=== PATIENT | male | born 1950 | race African-American/Black ===

== ENCOUNTER 2019-09-01 15:10 | Inpatient (IN) | payer MEDICARE, MEDICAID ==
[~2019-09-01] VITALS: Ht 170.2 cm; Wt 103.9 kg
[~2019-09-01 15:10] MED LIST: AMIODARONE HCL400 M1 ORAL; AMLODIPINE BESYL5 MG ORAL; ASPIRIN81 MG ORAL; CLOTRIMAZOLE10 MG PO; DIGOXIN125 MCG ORAL; DOC-Q-LACE100 M1 ORAL; FUROSEMIDE40 MG ORAL; LISINOPRIL10 MG ORAL; LISINOPRIL30 MG ORAL; METFORMIN HCL850 M1 ORAL; MYFORTIC180 MG PO; OYSTER SHELL C500 MG PO; PANTOPRAZOLE SO40 MG ORAL; PREDNISONE10 MG ORAL; PREDNISONE2.5 MG ORAL; SPIRONOLACTONE25 MG ORAL; STARLIX60 MG ORAL; SULFAMETHOXAZO1 EAC2 ORAL; TACROLIMUS1 MG PO; VALGANCICLOVIR450 MG PO; VITAMIN C500 M1 ORAL; VITAMIN E200 UNI2 PO
--- NOTE | 2019-09-01 15:40 | Emergency Room Report ---
History of Present Illness General Chief Complaint: General Complaint Source: Patient Present Illness HPI History of present illness: 69-year-old -[place] male with past medical history of orthotopic heart transplant (@ [facility] in 2016) on [place], HTN, DM BIB c/o feeling like his "head was hot". Questionable presyncope. Pt states he was watching TV prior to feeling symptomatic. He called his induction machine operator at [facility] but since he's on vacation until Thursday his urged him to come to ED for evaluation. Patient denies fever, PORTILLO, neck pain, rash, vision changes, weakness, CP, SOB, cough, n/v/d, swollen legs, PORTILLO, back pain, or recent medication changes. Denies recent travel or sick contacts. The patient's symptoms were gradual onset, severity was moderate, duration since 1 days. Past medical history: HTN, DM, heart transplant Past surgical history: heart transplant 2016 Smoking: Denies Alcohol use: Denies Drug use: Denies Review of systems: CONST: No fevers or chills, No night sweats PULMONARY: No productive cough, No shortness of breath CARDIAC: No chest pain, No palpitations GI: No vomiting, No diarrhea , No melena_or_BRBPR : No dysuria, No hematuria, No discharge NEURO: No new_focal_weakness_or_numbness, No confusion, No vision changes 14 point Review of Systems is otherwise negative except per HPI Physical Exam: GENERAL: Awake_alert_ nontoxic, no acute distress Spo2 98% on RA, normal EYES: Extraocular muscles are intact. Conjunctivae clear. Lids without swelling ENT: External nose and ear normal_in_appearance. Oropharynx clear. Head_ atraumatic, Moist_oral_mucosa NECK: No JVD. No meningismus. No thyromegaly. Supple. Trachea midline RESP: Normal respiratory effort. Symmetric rise. No stridor. Clear_to_ auscultation_No_rales_No_wheezes CARDIAC: Regular rate and regular rhythm on_auscultation No_significant pedal edema. ABDOMEN: Soft. Nondistended. Nontender_No_rebound_or_guarding. MSK: Normal muscle tone, without rigidity. Extremities without asymmetric deformity or swelling. SKIN: Warm and dry. No visible cyanosis or pallor NEUROLOGIC: Alert, oriented x3. Motor_and_sensation_grossly_intact. No truncal ataxia. Gait_normal Psych: Normal mood and affect, normal judgment and insight - COORDINATION OF CARE Case was discussed with: Patient Any labs and imaging that were ordered were interpreted as part of the medical decision making: Medical Decision Making/Plan: Differential diagnosis for the patients symptoms include malignant arrhythmias , obstructive heart disease (critical aortic stenosis, hypertrophic cardiomyopathy), acute anemia, severe dehydration, electrolyte abnormalities, among others. Patient's exam shows no acute abnormalities. EKG shows NSR with new twi of anteroseptal and lateral leads (V1-V5) Otherwise, no signs of malignant arrhythmia such as Brugada syndrome, delta wave, epsilon wave, significant heart block, or QTc >500. Review of previous EKG from admission in 2016 shows that these are new. CXR shows no acute changes from previously. Troponin is negative x 1. BNP unremarkable. Labs show no severe electrolyte derangement such as severe hyponatremia, hypokalemia, acidosis, or hypoglycemia. The patient denies any external blood loss and has no significant pallor or evidence of acute anemia as a cause of their symptoms. Hemoglobin is not severely low, and acute blood transfusion is not indicated. In addition, the patient has no loud murmur or evidence of significant obstructive heart disease, symptoms are not in the setting of exertion. The patient is neurologically intact, with normal cerebellar exam, without any evidence of central vertigo as a cause of their symptoms. They appear well hydrated without any evidence of severe dehydration or acute hypovolemia. However, given the patients risk factors, the patient would benefit from admission to observation for continuous cardiac monitoring, given the possibility of cardiac pre-syncope. I spoke with Dr. Velásquez, and reviewed the patients presentation, workup, results, and treatment. They will admit the patient for further care and evaluation, and assume care of the patient at this time. 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 Nursing Documentation-PMH Hx Cardiac Problems: Yes - hx of pacemaker [id number] Hx Hypertension: Yes Hx Pacemaker: Yes Hx COPD: Yes Hx Diabetes: Yes Hx Cancer: No Hx Gastrointestinal Problems: No Hx Neurological Problems: No Physical Exam Vital Signs Date Time Temp Pulse Resp B/P (MAP) Pulse Ox O2 Delivery O2 Flow Rate FiO2 09/01/19 15:17 99.1 87 19 154/92 (112) 98 Room Air Sp02 EP Interpretation: reviewed, normal Medical Decision Making Diagnostic Impression: Primary Impression: Pre-syncope Additional Impressions: Abnormal EKG CHF (congestive heart failure) Hx of heart transplant HTN (hypertension) EKG Diagnostic Results PA Scribe Text 12-lead EKG (interpreted by me) Time: 1606 Indication: Rhythm analysis Tracing visualized and Interpreted by me. Rhythm: Normal sinus rhythm [Normal sinus rhythm] Rate: 81 bpm QTc: 446 Morphology: No_significant_ST_elevations_or_depressions, No STEMI Impression: Normal sinus rhythm. T wave abnormality in V1 through V5. No acute STEMI. Normal intervals. Rhythm Strip Diag. Results Rhythm Strip Time: 15:40 EP Interpretation: yes Rate: 87 Rhythm: NSR Other Impression NSR Chest X-Ray Diagnostic Results Chest X-Ray Diagnostic Results : PA Scribe Text Chest X-ray: Views: 1 view(s) Indication: Presyncope Findings: Previous midline sternotomy. Mediastinum normal. No infiltrate. Impression: Previous midline sternotomy. Borderline cardiomegaly. Vascular congestion. The X-ray(s) were independently viewed and interpreted contemporaneously - Electronically signed by Josie arias DO Reevaluation Time: 16:28 Last Vital Signs Date Time Temp Pulse Resp B/P (MAP) Pulse Ox O2 Delivery O2 Flow Rate FiO2 09/01/19 15:17 99.1 87 19 154/92 (112) 98 Room Air Status: improved Disposition: ADMITTED INPATIENT Admit Decision Time: 16:28 Condition: Stable Josie Holt D.O. Sep 01, 2019 15:40
[2019-09-01 15:45] VITALS: BP 148/84
[2019-09-01 16:30] LABS: BASOPHILS % (AUTO) 1.2 % (0.0-2.0); EOSINOPHILS % (AUTO) 4.7 % (0.0-3.0); HEMATOCRIT 40.5 % (42.0-52.0); HEMOGLOBIN 13.3 G/DL (14.2-18.0); LYMPHOCYTES % (AUTO) 13.9 % (20.0-45.0); MEAN CORPUSCULAR VOLUME 83 FL (80-99); MONOCYTES % (AUTO) 7.8 % (1.0-10.0); NEUTROPHILS % (AUTO) 72.4 % (45.0-75.0); PLATELET COUNT 129 K/UL (150-450); RED BLOOD COUNT 4.89 M/UL (4.70-6.10); RED CELL DISTRIBUTION WIDTH 13.2 % (11.6-14.8); WHITE BLOOD COUNT 6.2 K/UL (4.8-10.8)
[2019-09-01 16:39] LABS: ANION GAP 7 mmol/L (5-15); BLOOD UREA NITROGEN 31 mg/dL (7-18); CALCIUM 9.4 MG/DL (8.5-10.1); CARBON DIOXIDE 28 MMOL/L (21-32); CHLORIDE 102 MMOL/L (98-107); CREATININE 1.3 MG/DL (0.55-1.30); POTASSIUM 4.3 MMOL/L (3.5-5.1); SODIUM 137 MMOL/L (136-145)
[2019-09-01 16:51] LABS: ALANINE AMINOTRANSFERASE 13 U/L (12-78); ALBUMIN 4.2 G/DL (3.4-5.0); ALBUMIN/GLOBULIN RATIO 1.3 (1.0-2.7); ALKALINE PHOSPHATASE 82 U/L (46-116); ASPARTATE AMINO TRANSFERASE 13 U/L (15-37); BILIRUBIN,TOTAL 0.5 MG/DL (0.2-1.0)
--- NOTE | 2019-09-01 16:54 | Diagnostic Imaging Report ---
Indication: Shortness of breath Technique: One view of the chest Comparison: 10/02/2015 Findings: Retained segment of an AICD lead is seen projected at expected region of the brachiocephalic vein, also evident previously. Again demonstrated are median sternotomy sutures. The heart size is normal. The lungs and pleural spaces are clear. Findings are unchanged Impression: No acute process
--- NOTE | 2019-09-01 16:57 | Diagnostic Imaging Report ---
Indication: Head pain Technique: Spiral acquisitions obtained through the abdomen and pelvis. No oral or IV contrast utilized, per urinary stone protocol. Multiplanar reconstructions were generated none. Total dose length product 1003 mGycm. CTDIvol(s) 53 mGy. Dose reduction achieved using automated exposure control Comparison: none Findings: Normal for age ventricles and extra axial CSF spaces. Normal leiva-white differentiation. No acute intracranial hemorrhage or edema. No mass effect nor midline shift. The calvarium is intact. There is minimal maxillary sinus mucosal thickening. The mastoids are clear. There is minimal periventricular deep white matter low-attenuation. Impression: Minimal age-related changes. Negative for acute intracranial bleed or mass effect Minimal bilateral maxillary sinus mucosal thickening The CT scanner at [facility] is accredited by the [employer] and the scans are performed using protocols designed to limit radiation exposure to as low as reasonably achievable to attain images of sufficient resolution adequate for diagnostic evaluation.
[2019-09-01 17:55] VITALS: BP 141/89
[2019-09-01] MEDS ORDERED: CARVEDILOL3.125 MG ORAL (18:15)
[2019-09-01 22:00] VITALS: BP 120/90
[2019-09-01] MEDS ORDERED: Magnesium Oxide 400mg tab ORAL SCH (22:00)
[2019-09-01] MEDS: NovoLOG Insulin Flexpen SUBQ SCH (22:55)
[2019-09-01] MEDS: Ascorbic Acid 500mg tab ORAL SCH (22:56)
[2019-09-01] MEDS: Lisinopril 20mg tab ORAL SCH (22:59)
[2019-09-02 00:46] VITALS: BP 93/72
[2019-09-02 04:00] VITALS: BP 122/86
[2019-09-02] MEDS ORDERED: NovoLOG Insulin Flexpen SUBQ SCH (06:30)
[2019-09-02] MEDS: NovoLOG Insulin Flexpen SUBQ SCH ×2 (06:30→11:30)
[2019-09-02 06:39] LABS: BASOPHILS % (AUTO) 1.7 % (0.0-2.0); EOSINOPHILS % (AUTO) 5.6 % (0.0-3.0); HEMATOCRIT 44.3 % (42.0-52.0); HEMOGLOBIN 14.1 G/DL (14.2-18.0); LYMPHOCYTES % (AUTO) 14.2 % (20.0-45.0); MEAN CORPUSCULAR VOLUME 84 FL (80-99); MONOCYTES % (AUTO) 8.4 % (1.0-10.0); NEUTROPHILS % (AUTO) 70.1 % (45.0-75.0); PLATELET COUNT 133 K/UL (150-450); RED CELL DISTRIBUTION WIDTH 12.6 % (11.6-14.8); WHITE BLOOD COUNT 4.6 K/UL (4.8-10.8)
[2019-09-02 07:19] LABS: ALANINE AMINOTRANSFERASE 18 U/L (12-78); ALBUMIN/GLOBULIN RATIO 1.2 (1.0-2.7); ALKALINE PHOSPHATASE 76 U/L (46-116); ANION GAP 9 mmol/L (5-15); ASPARTATE AMINO TRANSFERASE 16 U/L (15-37); BLOOD UREA NITROGEN 21 mg/dL (7-18); CALCIUM 9.5 MG/DL (8.5-10.1); CARBON DIOXIDE 26 MMOL/L (21-32); CHLORIDE 103 MMOL/L (98-107); POTASSIUM 4.4 MMOL/L (3.5-5.1); SODIUM 138 MMOL/L (136-145)
[2019-09-02 08:00] VITALS: BP 113/82
[2019-09-02] MEDS ORDERED: Os-Cal (Oyster Shell) 500mg tab ORAL SCH (09:00)
[2019-09-02] MEDS ORDERED: Aspirin Baby 81mg ORAL SCH (09:00)
[2019-09-02] MEDS: Lisinopril 20mg tab ORAL SCH (09:00)
[2019-09-02] MEDS: Ascorbic Acid 500mg tab ORAL SCH (09:16)
[2019-09-02] MEDS ORDERED: TACROLIMUS1 MG PO ×2 (09:26)
--- NOTE | 2019-09-02 10:15 | History and Physical Report ---
DATE OF ADMISSION: 09/01/2019 CHIEF COMPLAINT: Weakness. HISTORY OF PRESENT ILLNESS: The patient is a pleasant 69-year-old male, well known to me. He has a history of heart transplant in 2016, has been doing well since then. He presented with complaints of feeling "funny." He called paramedics. He describes a sensation. He has a difficult time describing the sensation he had. He did not have chest pain. He denies any dizziness or palpitations, but just states he felt strange. Denies any focal weakness, numbness, or slurred speech. He was transferred by paramedics to [facility] for further evaluation. On evaluation there, initial labs were unremarkable. Troponin was negative. EKG, there is some questionable changes noted. He is now admitted for further evaluation and care. PAST MEDICAL HISTORY: As above. PAST SURGICAL HISTORY: Heart transplant. CURRENT MEDICATIONS: Reconciled and reviewed. ALLERGIES: None. FAMILY HISTORY: None. SOCIAL HISTORY: Negative for tobacco, ethanol, or drugs. REVIEW OF SYSTEMS: GENERAL: No fevers or chills. HEENT: No headaches or visual changes. CARDIOPULMONARY: No chest pain or shortness of breath. GASTROINTESTINAL: No nausea or vomiting. GENITOURINARY: No urgency or frequency. MUSCULOSKELETAL: No joint pain or swelling. NEUROLOGICAL: No evidence of seizures. PHYSICAL EXAMINATION: VITAL SIGNS: Temperature 97, pulse 88, respirations 20, and blood pressure 93/72. GENERAL: The patient is well developed, in no apparent distress. HEENT: Head is normocephalic and atraumatic. NECK: Supple. No lymphadenopathy. HEART: Regular rate and rhythm without murmurs, rubs, or gallops. LUNGS: Clear to auscultation bilaterally. ABDOMEN: Soft, nontender, and nondistended. EXTREMITIES: Without clubbing, cyanosis, or edema. NEUROLOGIC: Motor strength is 5/5 bilaterally. Sensation is intact bilaterally. Reflexes are 2+. [id number] was normal. LABORATORY DATA: White count 6, hemoglobin 13, hematocrit 40. Sodium 137, potassium 4.3, BUN of 31, creatinine 1.3. ASSESSMENT: This is a pleasant male with history of heart transplant, admitted with mild weakness suspect secondary to dehydration. PLAN: 1. IV hydration. 2. Mobilize. 3. Discharge planning. 4. Cardiology followup as an outpatient. Taran Velásquez M.D. DR: NETTIE JOB#: [id number] CC:
[2019-09-02 12:00] VITALS: BP 118/84
--- NOTE | 2019-09-04 11:34 | Discharge Summary ---
Discharge Summary Discharge Summary _ DATE OF ADMISSION: 09/01/2019 DATE OF DISCHARGE: 09/02/2019 DISCHARGED BY: Dr. Taran Velásquez BRIEF HOSPITAL COURSE: The patient is a 69-year-old male, with history of heart transplant in 2016 and has been doing well since then. He presented to ED with complaints of "feeling funny." He called paramedics. Patient felt a sensation, he had a difficult time describing the sensations he had. He did not have chest pain. He denied any dizziness or palpitations, but he felt strange. He denied any focal weakness, numbness or slurred speech. He was transferred by paramedics to [facility] for further evaluation. On evaluation at ED, initial labs were unremarkable. Troponin was negative. EKG showed questionable changes. He was admitted to telemetry for further evaluation and care. The following day, vitals were stable. Troponin negative. Echocardiogram was done. (No official results). Patient had improvement in symptoms. Patient was cleared for discharge home, to follow-up with surgical pathologist as outpatient. FINAL DIAGNOSES: Mild weakness secondary to dehydration History of heart transplant DISPOSITION: Patient was discharged home. DISCHARGE MEDICATIONS: Refer to Discharge Medication List. DISCHARGE INSTRUCTIONS: Follow-up in a week. I have been assigned to complete a discharge summary on this account, I was not involved with the patient's management.--ERYN Ragsdale Jacqueline Robles NP Sep 04, 2019 11:34
== END 2019-09-02 12:33 | disposition home or self-care (01) | DRG 641 ==
LOC: EDBD 15:10 → EDUNIT# 15:10 → EMR 15:59 → EDBEDREQ 16:50 → 2E 17:05 → EDBEDREQ 19:26
DX: E86.0 Dehydration (principal); Z94.1 Heart transplant status; I10 Essential (primary) hypertension; E11.9 Type 2 diabetes mellitus without complications
CPT/HCPCS: 36415; 70450; 71045; 80053; 80197; 82607; 82962; 83036; 83880; 84443; 84484; 85025; 93005; 93306; 99285; J1815